=== PATIENT | female | born 1995 | race Caucasian/White ===

== ENCOUNTER 2024-12-22 13:07 | Emergency (ER) | payer OTHER ==
[~2024-12-22] VITALS: Ht 167.6 cm; Wt 81.8 kg
[2024-12-22 15:30] LABS: BASO # 0.0 10^3/uL (0.0-0.2); BASO % 0.4 % (0.0-1.0); EOS # 0.1 10^3/uL (0.0-0.5); EOS % 1.0 % (0.0-3.0); LYMPH # 1.9 10^3/uL (1.5-5.0); LYMPH % 18.2 % (24.0-44.0); MONO # 0.6 10^3/uL (0.0-0.8); MONO % 5.3 % (2.0-8.0); NEUTROPHILS # 7.8 10^3/uL (1.5-8.5); NEUTROPHILS % 74.6 % (36.0-66.0); PLATELET COUNT, AUTOMATED 260 10^3/uL (150-450)
[2024-12-22 15:55] LABS: CALCIUM LEVEL 9.1 MG/DL (8.5-10.1); CARBON DIOXIDE LEVEL 24 MMOL/L (20-31); CHLORIDE LEVEL 105 MMOL/L (98-107); CREATININE FOR GFR 0.91 MG/DL (0.55-1.30); GLOMERULAR FILTRATION RATE 88.1 (>60); POTASSIUM SERUM 3.9 MMOL/L (3.5-5.1); SODIUM LEVEL 136 MMOL/L (136-145)
[2024-12-22 15:56] LABS: HCG, SERUM QUALITATIVE POSITIVE (NEGATIVE)
[2024-12-22] MEDS: diphenhydrAMINE 50 MG/ML VIAL IV STA (16:07)
[2024-12-22] MEDS: ACETAMINOPHEN 325 MG TAB PO ONE (16:08)
[2024-12-22] MEDS: NS (Normal Saline) 0.9% 1,000 ML IV ONE (16:08)
[2024-12-22 16:32] VITALS: TEMP 98.4
[2024-12-22 18:00] VITALS: BP 102/56
[2024-12-22 18:02] VITALS: O2SAT 100
[2024-12-22] MEDS ORDERED: MAGN400T2 PO (22:14)
[2024-12-22] MEDS ORDERED: COEN100T PO (22:14)
== END 2024-12-22 22:50 | disposition home or self-care (01) ==
LOC: M ED 13:07
DX: R51.9 Headache, unspecified (principal); F41.9 Anxiety disorder, unspecified; F32.9 Major depressive disorder, single episode, unspecified; Z79.899 Other long term (current) drug therapy
CPT/HCPCS: 70544; 70547; 70551; 80047; 80048; 84703; 85025; 85730; 86850; 86900; 86901; 96361; 96374; 99285; J1200; J2765

== ENCOUNTER → 2024-12-26 | Outpatient (REF) | payer OTHER ==
[~2024-12-26] MED LIST: COEN100T PO; MAGN400T2 PO
[2024-12-26 16:30] LABS: Trichomonas vaginalis (AMP) NOT DETECTED (NEGATIVE)
[2024-12-26 16:55] LABS: GC DNA AMPLIFICATION NEGATIVE (NEGATIVE)
== END ==
LOC: M SFHCWAGY 15:07
PROVIDERS: ATTEND Advanced Practice Midwife
DX: Z34.81 Encounter for supervision of other normal pregnancy, first trimester (principal); N89.8 Other specified noninflammatory disorders of vagina; N94.89 Other specified conditions associated with female genital organs and menstrual cycle

== ENCOUNTER → 2024-12-26 | Outpatient (CLI) | payer OTHER ==
[2024-12-26 17:31] LABS: PLATELET COUNT, AUTOMATED 258 10^3/uL (150-450)
[2024-12-26 18:30] LABS: HIV 1&2 SCREEN NEGATIVE (NEGATIVE)
[2024-12-26 18:38] LABS: HEPATITIS C VIRUS ABY INDEX 0.02 INDEX (<0.8)
== END ==
LOC: M PLALAB 16:05
PROVIDERS: ATTEND Obstetrics & Gynecology
DX: O34.219 Maternal care for unspecified type scar from previous cesarean delivery (principal); Z3A.11 11 weeks gestation of pregnancy; Z13.79 Encounter for other screening for genetic and chromosomal anomalies; O09.291 Supervision of pregnancy with other poor reproductive or obstetric history, first trimester; N89.8 Other specified noninflammatory disorders of vagina; N94.89 Other specified conditions associated with female genital organs and menstrual cycle; O26.891 Other specified pregnancy related conditions, first trimester; O99.891 Other specified diseases and conditions complicating pregnancy